=== PATIENT | male | born 2000 | race American Indian/Alaskan Native ===

== ENCOUNTER 2021-05-13 20:34 | Emergency (ER) | payer BC, OTHER ==
[~2021-05-13] VITALS: Ht 170.2 cm; Wt 79.0 kg
== END 2021-05-13 21:35 | disposition home or self-care (01) ==
LOC: ED 20:34
PROC: 0HQGXZZ Repair Left Hand Skin, External Approach (ICD-10-PCS; principal; 2021-05-13)
DX: S61.213A Laceration without foreign body of left middle finger without damage to nail, initial encounter (principal); S61.215A Laceration without foreign body of left ring finger without damage to nail, initial encounter; S61.217A Laceration without foreign body of left little finger without damage to nail, initial encounter; W26.0XXA Contact with knife, initial encounter; Z23 Encounter for immunization; Z88.0 Allergy status to penicillin
CPT/HCPCS: 12001; 90471; 90715; 99282-25

== ENCOUNTER 2022-12-02 12:15 | Emergency (ER) | payer OTHER ==
[~2022-12-02] VITALS: Ht 170.2 cm; Wt 68.0 kg
[2022-12-02] MEDS ORDERED: DICLOFENAC POTA25 MG PO (14:22)
[2022-12-02] MEDS ORDERED: METHOCARBAMOL500 MG PO (14:22)
[2022-12-02 14:37] VITALS: BP 118/83
== END 2022-12-02 14:33 | disposition home or self-care (01) ==
LOC: ED 12:15
DX: S39.012A Strain of muscle, fascia and tendon of lower back, initial encounter (principal); X50.0XXA Overexertion from strenuous movement or load, initial encounter; Z88.0 Allergy status to penicillin
CPT/HCPCS: 72100; 96372; 99283-25; J1885

== ENCOUNTER 2024-07-29 13:12 | Emergency (ER) | payer OTHER, BC ==
[~2024-07-29] VITALS: Ht 170.2 cm; Wt 79.6 kg
[~2024-07-29 13:12] MED LIST: DICLOFENAC POTA25 MG PO; METHOCARBAMOL500 MG PO
[2024-07-29 14:21] VITALS: BP 127/83
== END 2024-07-29 14:25 | disposition home or self-care (01) ==
LOC: ED 13:12
DX: S50.01XA Contusion of right elbow, initial encounter (principal); Z88.0 Allergy status to penicillin; V59.9XXA Occupant (driver) (passenger) of pick-up truck or van injured in unspecified traffic accident, initial encounter
CPT/HCPCS: 73080; 99284